=== PATIENT | female | born 1990 | race Caucasian/White ===

== ENCOUNTER 2018-10-14 06:23 | Emergency (ER) | payer MEDICAID ==
[~2018-10-14] VITALS: Ht 160 cm; Wt 54.0 kg
[2018-10-14] MEDS ORDERED: SODIUM CHLORIDE 0.9% 1,000 ML IV ONE (07:00)
[2018-10-14] MEDS ORDERED: KETOROLAC 30MG/ML VIAL IV STA (07:00)
[2018-10-14 07:28] LABS: BASOPHILS % 0.6 % (0.0-2.0); EOSINOPHILS % 2.2 % (0.0-5.0); HEMATOCRIT. 38.4 % (36.0-48.0); LYMPHOCYTES % 34.2 % (20.0-50.0); MEAN CORPUSCULAR HEMOGLOBIN 30.3 pg (28.0-32.0); MEAN PLATELET VOLUME 8.4 fl (7.4-10.4); MONOCYTES % 6.3 % (2.0-8.0); NEUTROPHILS % 56.7 % (40.0-76.0); PLATELET 273 x1000/uL (130-400); RED BLOOD CELL COUNT 4.27 mill/uL (4.2-5.4); RED CELL DISTRIBUTION WIDTH 14.5 % (11.6-14.6)
[2018-10-14 07:40] LABS: HCG SCREEN NEGATIVE
[2018-10-14 07:42] LABS: MONOTEST NEGATIVE (NEGATIVE)
[2018-10-14] MEDS ORDERED: DEXAMETHASONE 10 MG/ML VIAL IV ONE (09:45)
[2018-10-14 10:00] VITALS: BP 97/60
== END 2018-10-14 10:30 | disposition home or self-care (01) ==
LOC: ER 06:23
DX: J02.9 Acute pharyngitis, unspecified (principal); R13.10 Dysphagia, unspecified; Z88.6 Allergy status to analgesic agent
CPT/HCPCS: 36415; 81025; 84703; 85025; 86308; 87070; 87430; 96374; 96375; 99283; J1100; J1885; J7030